=== PATIENT | female | born 1950 | race Caucasian/White ===

== ENCOUNTER → 2022-06-27 01:46 | Outpatient (CLI) | payer MEDICARE, SELFPAY ==
--- NOTE | 2022-06-27 17:10 | DI.MAMMO_ITS ---
Exam(s) MAMMO SCREENING EXAM: MAMMO SCREENING CLINICAL HISTORY: SCREENING MAMMO FOR BREAST CANCER Z12.31 TECHNIQUE: Bilateral full field digital CC and MLO mammographic images were obtained with 3D tomosyn thesis and utilizing computer aided detection (CAD). COMPARISON: Available for comparison. FINDINGS: Masses/Architectural Distortion: None seen. Microcalcifications: No suspicious pleomorphic-type are seen. Skin Thickening/Nipple Retraction: None. IMPRESSION: 1. No significant interval change with no specific features of malignancy noted. 2. Unless there is more urgent need, screening mammography is recommended, as per [place] [employer] guidelines. BI-RADS Category 1 - Negative Breast Density - Category C - Heterogeneously dense Breast density category C or D implies that the patient has dense breast tissue. Dense breast tissue is very common and is not abnormal but dense breast tissue can make it harder to find cancer on a ma mmogram. Also, dense breast tissue may increase their breast cancer risk. This information about the result of the mammogram report was provided to the patient to raise their awareness. Use this report when you speak with the patient about their risks for breast cancer, which includes their family hist ory. At that time, you may recommend for more screening tests (Ultrasound or MRI) as they might be us eful based on their risk. A negative radiographic report should not delay biopsy if a dominant or clinically suspicious mass is present. Up to ten percent of cancers are not identified on mammography. A negative report may reinforce clinical impression. Adenosis and dense breasts may obscure an underlying neoplasm. False positive reports average 6 to 10%. Patient will receive a letter notifying them of these results.
== END ==
PROVIDERS: Visit Provider Family Medicine
DX: Z12.31 Encounter for screening mammogram for malignant neoplasm of breast (principal); R92.8 Other abnormal and inconclusive findings on diagnostic imaging of breast
CPT/HCPCS: 77063; 77067

== ENCOUNTER 2022-08-24 13:52 | Outpatient (CLI) | payer MEDICARE, SELFPAY ==
--- NOTE | 2022-08-24 13:45 | RT.EKG_ITS ---
APPROVED REPORT Exam: Resting ECG Reason for Exam: sinus node dysfunction Patient Location: O HR:82 bpm ECG Measurements Heart Rate 82 AXIS LA 151 P [id number] QRSd 148 QRS 21 QT 398 T -35 QTc 465 Conclusion Atrial-paced rhythm Right bundle branch block...QRSd>120, terminal axis(90,270)
== END 2022-08-24 13:53 | disposition home or self-care (01) ==
LOC: DI.CARD 13:54
PROVIDERS: PCP Family Medicine; Visit Provider Internal Medicine Cardiovascular Disease
DX: Z95.0 Presence of cardiac pacemaker (principal); R94.31 Abnormal electrocardiogram [ECG] [EKG]; I45.19 Other right bundle-branch block
CPT/HCPCS: 93010

== ENCOUNTER → 2022-08-24 13:54 | Outpatient (BNVA) | payer MEDICARE, SELFPAY | PROVIDERS: PCP Family Medicine; Referring Provider Family Medicine; Visit Provider Internal Medicine Cardiovascular Disease | DX: I10 Essential (primary) hypertension (principal); E78.5 Hyperlipidemia, unspecified; Z95.0 Presence of cardiac pacemaker | CPT/HCPCS: 93005; 99202; 99203 ==

== ENCOUNTER 2022-10-22 03:50 | Outpatient (CLI) | payer MEDICARE, SELFPAY ==
[2022-10-22 10:47] LABS: HCT 38.9 % (36.0-46.0); HGB 13.7 g/dL (11.2-15.7); MCH 31.4 pg (27.0-33.0); MCHC 35.2 % (32.0-36.0); MCV 89 fL (80-95); Platelet Count 224 10^3/uL (130-400); RBC 4.36 10^6/uL (3.93-5.22); RDW 11.4 % (11.7-14.6); WBC 5.67 10^3/uL (4.4-10.8)
[2022-10-22 11:07] LABS: ALT 25 U/L (14-59); AST 19 U/L (15-37); Albumin 3.8 g/dL (3.4-5.0); Alkaline Phosphatase 78 U/L (46-116); Anion Gap 9.2 mmol/L (3-11); BUN 17 mg/dL (7-18); Bilirubin, Total 0.5 mg/dL (0.2-1.0); CO2 27.8 mmol/L (21.0-32.0); CREATININE 0.9 mg/dL (0.55-1.02); Calcium 9.5 mg/dL (8.5-10.1); Calculated LDL 101 mg/dL (<100); Chloride 104 mmol/L (98-107); Cholesterol 185 mg/dL (<200); Glucose 118 mg/dL (74-106); HDL Cholesterol 66 mg/dL (40-60); Potassium 3.8 mmol/L (3.5-5.1); Sodium 141 mmol/L (136-145); Total Protein 7.5 g/dL (6.4-8.2); Triglyceride 93 mg/dL (<150)
== END 2022-10-22 03:51 | disposition home or self-care (01) ==
PROVIDERS: PCP Family Medicine; Visit Provider Family Medicine
DX: I10 Essential (primary) hypertension (principal); R73.03 Prediabetes; K21.9 Gastro-esophageal reflux disease without esophagitis; E78.5 Hyperlipidemia, unspecified
CPT/HCPCS: 36415; 80053; 80061; 85027; 83036

== ENCOUNTER 2022-12-14 00:27 | Outpatient (CLI) | payer MEDICARE, SELFPAY ==
--- NOTE | 2022-12-14 | DI.US_ITS ---
Exam(s) US THYROID EXAM: US THYROID CLINICAL HISTORY: THYROID NODULE E04.1. TECHNIQUE: Ultrasound thyroid performed using standard protocol. COMPARISON: US US HEAD AND NECK from 03/26/2022 FINDINGS: ISTHMUS: 3 mm RIGHT LOBE: Size: 6.8 x 3.0 x 3.4 cm Echogenicity: Normal. Vascularity: Normal. Nodules: There is a 4.9 x 2.5 x 3.4 cm nodule. This is a solid nodule. This is a TI rads level 3 no dule. Due to its size, FNA is recommended. Please correlate with the patient's past procedural hist ory. LEFT LOBE: Size: 5.2 x 1.6 x 1.6 cm Echogenicity: Normal. Vascularity: Normal. Nodules: The left lobe nodule is grossly unchanged in size using similar measuring techniques. This is consistent with a TI rads level 3 nodule. Due to its size follow-up is recommended. There are no other left thyroid nodules visualized that would warrant follow-up or FNA. OTHER FINDINGS: None. IMPRESSION: Stable thyroid nodules. DATA REPOSITORY:
== END 2022-12-14 00:47 ==
LOC: DI 00:27
PROVIDERS: PCP Family Medicine; Visit Provider Family Medicine
DX: E04.1 Nontoxic single thyroid nodule (principal)
CPT/HCPCS: 76536

== ENCOUNTER 2022-12-19 08:17 | Outpatient (CLI) | payer MEDICARE, SELFPAY ==
--- NOTE | 2022-12-19 08:15 | RT.EKG_ITS ---
APPROVED REPORT Exam: Resting ECG Reason for Exam: check pacemaker Patient Location: O HR:78 bpm ECG Measurements Heart Rate 78 AXIS MO 154 P -29 QRSd 165 QRS -3 QT 426 T -36 QTc 486 Conclusion Pacemaker spikes or artifacts...timing non-diagnostic Sinus rhythm...normal P axis, V-rate 50- 99 Right bundle branch block...QRSd>120, terminal axis(90,270) Artifact in lead(s) I,III,aVR,aVL,aVF,V4,V5,V6
== END 2022-12-19 08:18 | disposition home or self-care (01) ==
LOC: DI.CARD 08:18
PROVIDERS: PCP Family Medicine; Visit Provider Physician Assistant
DX: Z95.0 Presence of cardiac pacemaker (principal)
CPT/HCPCS: 93010

== ENCOUNTER → 2022-12-19 08:24 | Outpatient (BNVA) | payer MEDICARE, SELFPAY | PROVIDERS: PCP Family Medicine; Referring Provider Family Medicine; Visit Provider Physician Assistant | DX: Z45.010 Encounter for checking and testing of cardiac pacemaker pulse generator [battery] (principal); I49.5 Sick sinus syndrome | CPT/HCPCS: 93005; 93280 ==

== ENCOUNTER → 2023-02-21 11:03 | Outpatient (BNVA) | payer MEDICARE, SELFPAY | PROVIDERS: PCP Family Medicine; Referring Provider Family Medicine; Visit Provider Physical Therapy Assistant | DX: Z12.11 Encounter for screening for malignant neoplasm of colon (principal); Z86.010 Personal history of colon polyps; Z80.0 Family history of malignant neoplasm of digestive organs ==

== ENCOUNTER 2023-03-08 08:20 | Day surgery (SDC) | payer MEDICARE, SELFPAY ==
--- NOTE | 2023-03-07 20:22 | W.COLOREPORT ---
Date of service: 03/08/23 Time of Service: 09:30 Colonoscopy Report Date of procedure: 03/08/23 Pre-op diagnosis general: Colon polyps/family hx of CRC cancer Post-op diagnosis procedure note: other (Diverticula and rectal polyp.) Surgeon: Salma Fox Anesthesia Type: General:No Airway Estimated blood loss (mL): 1 Pathology: other Complications: None Disposition: same day Prep: Miralax/Dulcolax Retraction Time: 9 Procedure Description: After informed consent was obtained the patient was taken to the procedure room and placed in a left decubitous position. Monitors were applied and a time out was done. The patients name, date of , procedure, allergies to medications and metal in their body was reviewed. The patient was then sedated. Once sedated and comfortable a rectal exam was done. External exam was normal. Internal exam revealed a normal sphincter tone and no palpable masses. The scope was then introduced and retrofelexed. No internal hemorrhoids were identified. The scope was then advanced to the cecum with some difficulty: we did have to place her supine in order to get across the hepatic flexure. The TI and appendiceal orifice were identified. The prep was BBPS 1 in right colon and 2 in ransverse adn left colon for a total of 5. The scope was then slowly retracted over 9 minutes back into the rectum. she has moderate diverticula confined to the sigmoid colon. There are no signs of active bleeding or infection. She has a flat 5 mm polyp in the rectum. This is removed with a cold forcep. All specimen is retrieved and no bleeding is noted. The mucosa is pink and healthy w/ a normal vascular pattern. The scope was removed and the patient was woken up and taken back to Same day surgery in stable condition. The patient tolerated the procedure well and there were no immediate complications. Follow up: The patient should follow up in 5 years unless they develop changes in bowel habits or other new gastrointestinal complaints.
--- NOTE | 2023-03-07 20:23 | PDOC.DSDIS_ITS ---
Date of service: 03/08/23 Time of Service: 09:47 Discharge Plan Disposition Patient Disposition: Home Condition: Good Discharge Details Reason For Visit: colon scope Attending Provider: Salma Fox Primary Care Provider: Griffin Huffman Home Meds and New Rx's Prescriptions: Continued lutein 6 mg capsule 6 mg PO DAILY Rx Instructions: give with meal/snack alendronate 70 mg tablet 70 mg PO QWEEK atorvastatin 20 mg tablet 20 mg PO DAILY metoprolol succinate 25 mg tablet extended release 24 hr 25 mg PO DAILY lisinopril-hydrochlorothiazide 20-25 mg tablet 1 tab PO DAILY amoxicillin 500 mg capsule 2,000 mg PO BID Rx Instructions: take 4 tabs prior to dental work multivitamin Tablet 1 tab PO DAILY vitamin B complex Tablet 1 tab PO DAILY Caltrate-D3 Plus Minerals 300 mg-800 unit -25 mg-0.5 mg tablet 1 tab PO DAILY Adult 50 Plus Probiotic 4 billion cell capsule 4,000 mmu cells PO DAILY Rx Instructions: administer with a meal docusate sodium 50 mg capsule 50 mg PO DAILY PRN doxepin 10 mg capsule 10 mg PO QHS PRN Discontinued bisacodyl [Dulcolax (bisacodyl)] 5 mg tablet,delayed release (DR/EC) 5 mg PO ONCE Qty: 4 0RF Rx Instructions: Take per colonoscopy instructions provided by ordering providers office polyethylene glycol 3350 17 gram/dose powder 17 g PO ONCE Qty: 238 0RF Rx Instructions: Take per colonoscopy instructions provided by ordering providers office Discharge Instructions Additional Instructions: DSU Colonoscopy Post- Op Instructions Instructions for Everyone who is given Anesthesia: For your safety, please do the following for the next twenty-four (24) hours: *Do Not operate a motor vehicle (car, truck, motorcycle, etc.) *Do Not drink alcoholic beverages or use any recreational drugs for the first 24 hours or while taking pain medications. The medications in your body may have a reaction that can be dangerous. *Do Not make any important decisions or sign any important papers. Findings: diverticula-make sure you are moving your bowels on a regular basis and not straining to go to the office small polyp polyp-my office will send you a letter in 2 to 3 weeks with the results of the biopsies and when we want you to repeat the colonoscopy, most likely 5 years time. Follow up: 1. No lifting over 20 pounds or strenuous activity for the first 24 hours after your procedure. After 24 hours there are no restrictions on your activity but you may feel fatigued for a few days. 2. After you arrive home you may have a light meal and return to your normal diet as you can tolerate it without feeling sick to your stomach. 3. You may have a bloated, gaseous feeling in your belly (abdomen) after a colonoscopy. Passing gas and belching will help. Walking or lying down on your left side with your knees flexed may relieve the discomfort. Call the office at [phone] (Office) or [phone] (Hospital) right away if you notice any of the following: a.Vomiting of blood or ?coffee ground stools?. b.Rectal bleeding 1Tbsp, blood clots or continuous bleeding. c.Severe belly (abdominal) pain. d.A hard distended belly (abdomen) and an inability to pass gas. 4. Please don?t expect to have a normal BM (bowel movement) for 2-3 days after your procedure. 5. If there are questions regarding the findings of your procedure, please contact your doctor 6. If you are unable to contact your doctor with a problem, contact the hospital at [phone]. 7. Continue all your regular medications unless directed otherwise. I understand the above instructions and have no questions. Signature of Patient or Adult Escort Name of Responsible Adult Escort Signature of Nurse Date/Time Activity:: see above Diet:: see above Discharge Orders Discharge Orders: Discharge Order (Routine); Ordered 03/08/23 Ordered By: Salma Fox DS: Diagnosis Discharge Diagnosis (1) Hypertension: Status: Chronic (2) Prediabetes: Status: Acute (3) Cardiac pacemaker in situ: Status: Acute (4) Thyroid nodule: Status: Acute (5) Family history of colon cancer: Status: Acute Asessment and Plan: The patient is seen and examined after their colonoscopy.? The patient has been able to pass gas.? They are not having abdominal pain.? They have been able to tolerate liquids and a snack.? They do not have any nausea or vomiting.? They are not having any chest pain or shortness of breath.??? They are not having any rectal bleeding. Their vital signs have been stable-see nursing notes. We discussed findings during their colonoscopy, and any biopsies that were done/polyps that were removed. The patient will be sent a letter with any biopsy results, and when to repeat the colonoscopy.-see discharge instructions. Patient was given explicit instructions to follow-up regarding colonoscopy-refer to discharge instructions.? We reviewed resumption of medications. Patient verbalized understanding and discharged in stable and satisfactory condition- See nursing notes. 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
[2023-03-08 08:25] VITALS: BP 123/85; PULSE 65; RESP 16; TEMP 36.6; O2SAT 97
--- NOTE | 2023-03-08 08:45 | ANES.PREOP_ITS ---
General Info Date of Service Date Performed: 03/08/23 Height: 5 ft 4 in Weight: 81.5 kg Body Mass Index (BMI): 30.8 Surgical Procedure: Operation Date: 03/08/23 09:05 Proposed Procedure Side Surgeon hector Fox, DO Meds Allergies and Home Medications Allergies Allergy/AdvReac Type Severity Reaction Status Date / Time No Known Allergies Allergy Verified 03/08/23 08:29 Home Medication Medication Instructions Recorded alendronate 70 mg tablet 70 mg PO QWEEK 07/02/22 amoxicillin 500 mg capsule 2,000 mg PO BID 07/02/22 atorvastatin 20 mg tablet 20 mg PO DAILY 07/02/22 calcium carb 300 mg-D3 20 mcg-mag 1 tab PO DAILY 07/02/22 ox 25 mg-certified flex endoscope reprocessor 0.5 [id number] tablet (Caltrate-D3 Plus Minerals) docusate sodium 50 mg capsule 50 mg PO DAILY PRN 07/02/22 lactobacillus combination no.9 4 4,000 mmu cells PO DAILY 07/02/22 billion cell capsule (Adult 50 Plus Probiotic) lisinopril 20 1 tab PO DAILY 07/02/22 mg-hydrochlorothiazide 25 mg tablet metoprolol succinate 25 mg 25 mg PO DAILY 07/02/22 tablet,extended release 24 hr multivitamin 1 tab PO DAILY 07/02/22 vitamin B complex 1 tab PO DAILY 07/02/22 doxepin 10 mg capsule 10 mg PO QHS PRN 12/19/22 lutein 6 mg capsule 6 mg PO DAILY 12/19/22 Current Visit Medications: Current Medications Generic Name Dose Route Start Last Admin Trade Name Freq PRN Reason Stop Dose Admin Hyoscyamine Sulfate 0.125 mg 03/08/23 01:03 Hyoscyamine 0.125 Mg Sl/Oral/Chew SL 04/07/23 01:02 DIRECTED PRN Ringer's Solution 1,000 mls @ 80 mls/hr 03/08/23 06:00 IV 03/08/23 23:59 [facility] IV Miscellaneous Supplies 1 each 03/08/23 06:00 Iv Access IV 03/08/23 23:59 DIRECTED ERNESTO Ondansetron HCl 4 mg 03/08/23 01:03 Ondansetron 4 Mg/2 Ml Vial IVP 04/07/23 01:02 Q4H PRN PRN Nausea / Vomiting Sodium Chloride 0 ml 03/08/23 06:00 Normal Saline Flush 10 Ml Syr IV 03/08/23 23:59 PRN PRN Sodium Chloride 0 ml 03/08/23 06:00 Normal Saline 10 Ml Vial IJ 03/08/23 23:59 DIRECTED PRN Sterile Water 0 ml 03/08/23 06:00 Water,Injection,Sterile 10 Ml Vial IJ 03/08/23 23:59 DIRECTED PRN PFSH Active Problems Active Problems: Problem Status Onset Code Screening for colon cancer Z12.11 Hypertension I10 Prediabetes R73.03 Cardiac pacemaker in situ Z95.0 Thyroid nodule E04.1 Insomnia G47.00 Family history of colon cancer Z80.0 Hyperlipidemia E78.5 Anxiety F41.9 GERD (gastroesophageal reflux disease) K21.9 Osteoarthritis M19.90 Glaucoma H40.9 Squamous cell carcinoma of mouth C06.9 Overactive bladder N32.81 Sinus node dysfunction I49.5 Medical History Medical History Bradycardia Sacral nerve stimulator present In situ for OAB Surgical History Surgical History H/O oral surgery S/P vaginal hysterectomy Status post arthroscopy of knee both knees Tobacco Smoking/Tobacco Use Status: Never Alcohol Alcohol Intake: current Alcohol intake frequency: a few times a month Substance Use Substance use: Never Substance use type: does not use Vital Signs and Lab Results Vital Signs Most Recent Vital Signs in EMR: Most Recent Vital Signs Temp Pulse Resp BP Pulse Ox 36.6 C 65 16 123/85 97 03/08/23 08:25 03/08/23 08:25 03/08/23 08:25 03/08/23 08:25 03/08/23 08:25 Lab Results Blood Type / Crossmatch: No Data to Display Complete Blood Count: No Data to Display Complete Metabolic Panel: No Data to Display Liver Function Panel: No Data to Display Coagulation Panel: No Data to Display Cardiac Panel: No Data to Display Arterial Blood Gas: No Data to Display Venous Blood Gas: No Data to Display Pancreas Panel: No Data to Display Thyroid Panel: No Data to Display Infectious Disease: No Data to Display Blood Cultures: No Data to Display Toxicology Panel: No Data to Display Anesthesia Assessment and Plan Anesthesia History Personal History: No History of Anesthesia Complications Family History: No Family History of Anesthesia Complications Exercise Tolerance Exercise Tolerance: Metabolic Equivalents>4 Pertinent Negatives Pertinent Negatives: No Symptoms of GERD and No Major Pulmonary Symptoms or Complaints Cardiac & Pulmonary Exam Cardiac Exam: Normal S1/S2 Heart Sounds Pulmonary Exam: Clear Bilateral Breath Sounds Implantable Cardiac Device Does patient have a Pacemaker or an ICD?: Yes Device Floor Worker:: Medtronic dual lead Mustang Reason for Placement:: Bradycardia Date of Last Device Inte rrogation:: 12/2022 Airway Exam Known Difficult Airway: No Mallampati Class: 1 Mouth Opening: Normal (> 3cm) Thyromental Distance: Greater than 3 cm Neck Range of Motion: Full ROM Neck Circumference: Normal Teeth Condition: Normal Dentition ASA Classification ASA Score: ASA 3 Emergency Case?: No NPO Status NPO Status: NPO Clears >2 hours, Solids >8 hours Anesthesia Plan Resuscitation Status: Full Code Anesthesia Technique: General Anesthesia Airway Planned: Natural Airway Monitors Used: Standard Monitors
[2023-03-08 08:47] VITALS: BMI 30.8
[2023-03-08] MEDS: Lactated Ringers 1,000 ML 80 ML IV (08:50)
--- NOTE | 2023-03-08 09:26 | BOWEL_PTH ---
PATIENT: Sissy Bran LOC: [facility] U#:[id number] AGE/SX: 72/F ROOM: RE03/08/[address]: Salma Fox : 1950 BED: DIS: 03/08/2023 SPEC #: [id number] RECD: 03/08/23 12:40 STATUS: TOBI REQ #: [id number] HOSSEIN: 03/08/23 09:[address]: Salma Fox DEPT: Surgical Specimen RECD BY: Ana Manrique ENTERED: 03/08/23 12:41 SP TYPE: Bowel OTHR DR: Griffin Huffman Tissues: 1 - BIOPSY BOWEL Procedures: GROSS AND MICRO LEVEL 4 Comments: [id number]
[2023-03-08 09:32] VITALS: BP 107/61; PULSE 63; RESP 20; TEMP 36.2; O2SAT 94
[2023-03-08 10:03] VITALS: BP 120/68; PULSE 62; RESP 17; TEMP 36.1; O2SAT 99
--- NOTE | 2023-03-08 11:25 | W.ANESPOSTOP ---
Postoperative Evaluation Date, Time and Location Date Performed: 03/08/23 Time Performed: 10:08 Patient Location: Day Surgery Unit Vital Signs Most Recent Imported Vital Signs: Most Recent Vital Signs Temp Pulse Resp BP Pulse Ox 36.1 C L 62 17 120/68 99 03/08/23 10:03 03/08/23 10:03 03/08/23 10:03 03/08/23 10:03 03/08/23 10:03 Pain Score Most Recent Pain Score: Most Recent Pain Score Pain Level 0 03/08/23 10:03 Assessment Mental Status: Awake (Alert & Oriented to Patient Baseline) Airway and Respiratory Function: Patent airway with normal (patient baseline) respiratory exam Cardiovascular Function: Hemodynamically Stable Hydration Status: Adequately Hydrated Nausea & Vomiting: No Nausea or Vomiting Pain: Pt. Denies Any Pain Peripheral Nerve Block: Patient did not receive a nerve block
== END 2023-03-08 10:20 | disposition home or self-care (01) ==
LOC: SUR 08:20
PROVIDERS: PCP Family Medicine; Visit Provider Surgery
PROC: 0DJD8ZZ Inspection of Lower Intestinal Tract, Via Natural or Artificial Opening Endoscopic (ICD-10-PCS; CPT 45378; principal; 2023-03-08 09:00)
DX: Z12.11 Encounter for screening for malignant neoplasm of colon (principal); K62.1 Rectal polyp; K57.30 Diverticulosis of large intestine without perforation or abscess without bleeding; Z80.0 Family history of malignant neoplasm of digestive organs; Z86.010 Personal history of colon polyps
CPT/HCPCS: 45380; 88305

== ENCOUNTER → 2023-06-19 09:04 | Outpatient (BNVA) | payer MEDICARE, SELFPAY | PROVIDERS: PCP Family Medicine; Referring Provider Family Medicine; Visit Provider Physician Assistant | DX: Z45.018 Encounter for adjustment and management of other part of cardiac pacemaker (principal); I49.5 Sick sinus syndrome | CPT/HCPCS: 93280 ==

== ENCOUNTER → 2023-08-23 10:43 | Outpatient (BNVA) | payer MEDICARE, SELFPAY | PROVIDERS: PCP Family Medicine; Referring Provider Family Medicine; Visit Provider Internal Medicine Interventional Cardiology | DX: Z95.0 Presence of cardiac pacemaker (principal); I10 Essential (primary) hypertension; E78.5 Hyperlipidemia, unspecified | CPT/HCPCS: 99213 ==

== ENCOUNTER 2023-09-02 14:34 | Outpatient (REF) | payer MEDICARE, SELFPAY ==
[2023-09-02 15:17] LABS: HCT 37.4 % (36.0-46.0); HGB 13.2 g/dL (11.2-15.7); MCH 31.7 pg (27.0-33.0); MCHC 35.3 % (32.0-36.0); MCV 90 fL (80-95); Platelet Count 202 10^3/uL (130-400); RBC 4.16 10^6/uL (3.93-5.22); RDW 11.9 % (11.7-14.6); RDW-SD 38.8 fL; WBC 5.22 10^3/uL (4.4-10.8)
[2023-09-02 15:37] LABS: ALT 45 U/L (14-59); AST 29 U/L (15-37); Albumin 3.9 g/dL (3.4-5.0); Alkaline Phosphatase 68 U/L (46-116); Anion Gap 6.7 mmol/L (3-11); BUN 17 mg/dL (7-18); Bilirubin, Total 0.5 mg/dL (0.2-1.0); CO2 29.3 mmol/L (21.0-32.0); CREATININE 0.7 mg/dL (0.55-1.02); Calcium 9.7 mg/dL (8.5-10.1); Calculated LDL 109 mg/dL (<100); Chloride 104 mmol/L (98-107); Cholesterol 203 mg/dL (<200); Glucose 126 mg/dL (74-106); HDL Cholesterol 70 mg/dL (40-60); Potassium 3.9 mmol/L (3.5-5.1); Sodium 140 mmol/L (136-145); TSH (W/Ref FT4) 0.82 uIU/mL (0.36-3.74); Total Protein 7.2 g/dL (6.4-8.2); Triglyceride 123 mg/dL (<150)
== END 2023-09-02 14:35 | disposition home or self-care (01) ==
LOC: NCHCN 14:34
PROVIDERS: PCP Family Medicine; Visit Provider Family Medicine
DX: I10 Essential (primary) hypertension (principal); E78.5 Hyperlipidemia, unspecified; E04.1 Nontoxic single thyroid nodule
CPT/HCPCS: 80053; 80061; 85027; 84443

== ENCOUNTER → 2023-12-18 08:57 | Outpatient (BNVA) | payer MEDICARE, SELFPAY | PROVIDERS: PCP Family Medicine; Referring Provider Family Medicine; Visit Provider Student in an Organized Health Care Education/Training Program | DX: I49.5 Sick sinus syndrome (principal); Z45.010 Encounter for checking and testing of cardiac pacemaker pulse generator [battery] | CPT/HCPCS: 93280 ==

== ENCOUNTER 2024-05-04 15:04 | Outpatient (REF) | payer MEDICARE, SELFPAY ==
[2024-05-04 15:24] LABS: Anion Gap 9.9 mmol/L (3-11); BUN 17 mg/dL (7-18); CO2 27.1 mmol/L (21.0-32.0); CREATININE 0.8 mg/dL (0.55-1.02); Calcium 9.7 mg/dL (8.5-10.1); Chloride 104 mmol/L (98-107); Estimated GFR 76.79 (mL/min/1.73m2); Glucose 114 mg/dL (74-106); Potassium 3.9 mmol/L (3.5-5.1); Sodium 141 mmol/L (136-145); Vitamin D 25 Total 34.3 ng/mL (30-100)
== END 2024-05-04 15:05 | disposition home or self-care (01) ==
LOC: NCHCN 15:04
PROVIDERS: PCP Family Medicine; Visit Provider Family Medicine
DX: M81.0 Age-related osteoporosis without current pathological fracture (principal); I10 Essential (primary) hypertension; E04.1 Nontoxic single thyroid nodule
CPT/HCPCS: 80048; 82306

== ENCOUNTER 2024-05-06 15:05 | Outpatient (REF) | payer MEDICARE, SELFPAY ==
[2024-05-09 15:15] LABS: Metanephrines, U 154 mcg/24 h; Normetanephrine, U 684 mcg/24 h; Total Metanephrines, U 838 mcg/24 h; Urine Volume 1900 mL
[2024-05-11 09:35] LABS: Urine Volume 1900 mL
== END 2024-05-06 15:06 | disposition home or self-care (01) ==
LOC: NCHCN 15:05
PROVIDERS: PCP Family Medicine; Visit Provider Family Medicine
DX: I10 Essential (primary) hypertension (principal)
CPT/HCPCS: 81050; 82384; 83835

== ENCOUNTER 2024-06-04 02:19 | Outpatient (CLI) | payer MEDICARE, SELFPAY ==
--- NOTE | 2024-06-04 | DI.DEXA_ITS ---
Exam(s) XR DEXA BONE DENSITY W/WO MAHSA EXAM: XR DEXA BONE DENSITY W/WO MAHSA CLINICAL HISTORY: Age-related osteoporosis wo current pathological fx, M81.0 TECHNIQUE: Bettymovil C densitometer analysis of left hip, lumbar spine and left forearm. Lat eral survey image of the thoracic and lumbar spine. COMPARISON: No exams were available for comparison FINDINGS: Lateral view of the thoracic and lumbar spine shows no evidence of compression fractures. Bone mineral density measurements of the lumbar spine correspond to a total T-score of 1.1, in the n ormal range Bone mineral density measurements of the left hip correspond to a total T-score of -1.9. The femora l neck T-score is -2.2, in the osteopenic range.. Theleft forearm bone mineral density measurements correspond to a T-score of the distal 3rd of -2.2, in the osteopenic range.. IMPRESSION: Normal bone mineral density of the spine. Osteopenia of the hip and forearm.
== END 2024-06-04 02:39 ==
LOC: DI 02:19
PROVIDERS: PCP Family Medicine; Visit Provider Family Medicine
DX: M85.89 Other specified disorders of bone density and structure, multiple sites (principal); Z13.820 Encounter for screening for osteoporosis
CPT/HCPCS: 77080

== ENCOUNTER → 2024-08-21 10:52 | Outpatient (BNVA) | payer MEDICARE, SELFPAY | PROVIDERS: PCP Family Medicine; Referring Provider Family Medicine; Visit Provider Internal Medicine Cardiovascular Disease | DX: R06.02 Shortness of breath (principal); Z95.0 Presence of cardiac pacemaker | CPT/HCPCS: 99214 ==

== ENCOUNTER 2024-12-23 07:57 | Outpatient (CLI) | payer MEDICARE, SELFPAY ==
--- NOTE | 2024-12-23 07:45 | RT.EKG_ITS ---
APPROVED REPORT Exam: Resting ECG Reason for Exam: sick sinus syndrome Patient Location: O HR:73 bpm ECG Measurements Heart Rate 73 AXIS SD 162 P -60 QRSd 146 QRS 0 QT 429 T -32 QTc 473 Conclusion Sinus or ectopic atrial rhythm...P axis (-45,135) Right bundle branch block...QRSd>120, terminal axis(90,270)
== END 2024-12-23 07:58 | disposition home or self-care (01) ==
LOC: DI.CARD 07:58
PROVIDERS: PCP Family Medicine; Visit Provider Student in an Organized Health Care Education/Training Program
DX: I49.5 Sick sinus syndrome (principal); R00.1 Bradycardia, unspecified; I45.10 Unspecified right bundle-branch block
CPT/HCPCS: 93010

== ENCOUNTER → 2024-12-23 09:20 | Outpatient (BNVA) | payer MEDICARE, SELFPAY | PROVIDERS: PCP Family Medicine; Visit Provider Registered Nurse | DX: I49.5 Sick sinus syndrome; Z45.018 Encounter for adjustment and management of other part of cardiac pacemaker | CPT/HCPCS: 93280; 93005 ==

== ENCOUNTER 2025-02-16 03:13 | Outpatient (CLI) | payer MEDICARE, SELFPAY ==
--- NOTE | 2025-02-16 07:45 | DI.US_ITS ---
APPROVED REPORT EXAM: Comprehensive 2D, Doppler, and color-flow Echocardiogram Patient Location: Out-Patient Weight Calculator: Adeline Holman RDCS (AE) Indications: Systolic murmur, SOB Other Information Study Quality: Adequate Conclusion Normal left ventricular wall thickness and chamber size. Ejection fraction is 60%. Wall motion is normal Normal right ventricular size and function Both atria are normal in size The aortic valve is trileaflet and minimally sclerotic with trace regurgitation Estimated right ventricular systolic pressure is 30 mmHg Ascending aorta measures 4.19 cm Device lead noted in the right heart Wall motion Left Ventricle The left ventricle is normal size. The left ventricular systolic function is normal. The left ventricular ejection fraction is within the normal range. There is normal left ventricular wall thickness. There is normal LV segmental wall motion. There is no ventricular septal defect visualized. LVEF is 60%. Right Ventricle Right ventricle is grossly normal in size. Right ventricular systolic function is grossly normal. Pacemaker lead is present in the right ventricle. Atria The left atrium size is normal. The right atrium size is normal. The interatrial septum is intact with no evidence for an atrial septal defect. Aortic Valve The Aortic valve is minimally sclerotic. Aortic valve is trileaflet. No hemodynamically significant valvular aortic stenosis. Trace aortic regurgitation. Mitral Valve The mitral valve is normal in structure. No evidence of mitral valve stenosis. Trace mitral regurgitation. Tricuspid Valve The tricuspid valve is normal in structure. There is no tricuspid valve stenosis. Trace tricuspid regurgitation. The RVSP is 30.0_ mmHg. Pulmonic Valve The pulmonary valve is normal in structure. There is no pulmonic valvular stenosis. Trace pulmonic regurgitation. Great Vessels The aortic root is normal in size. The ascending aorta is moderately dilated. Aortic arch is not well visualized. IVC is normal in size and collapses >50% with inspiration. Pericardium There is no pericardial effusion. 2D Dimensions IVSD d PLAX 0.90 cm F: 0.6-1.0 Ao Root d 3.01 cm F: 2.7 - 3.3 LVPW d PLAX 0.90 cm F: 0.6 - 1.0 Ao Asc Diam d 4.06 cm F: 2.3 - 3.1 LVID d PLAX 4.60 cm F: 3.8 - 5.2 LVDs 3.10 cm F: 2.2 - 3.5 LV EF Teichholz 61.5 % FS 32.94 % LV EDV (Teich) 97.4 mL LV ESV (Teich) 37.5 mL M-Mode TAPSE 3.23 cm (M/F) >1.7 Auto EF LV EDV A4C 98.4 mL LV EDV A2C 77.8 mL LV EDV BP 88.4 mL LV ESV A4C 42.2 mL LV ESV A2C 32.8 mL LV ESV BP 37.3 mL LVEF(%) A4C 57.2 % LVEF(%) A2C 57.9 % LVEF(%) BP 57.7 % LV SV A4C 56.2 ml LV SV A2C 45.0 ml LV SV BP 51.0 ml LV CO A4C 3.4 L/min LV CO A2C 2.7 L/min LV CO BP 3.0 L/min HR A4C 60.00 BPM HR A2C 60.00 BPM LV EDV Index (BP) LA Volume LA Length A4C 4.9 cm LA Length A2C 5.3 cm LA Area A4C s 14.74 cm2 LA Area A2C s 15.66 cm2 LA Vol A4C A-L 37.35 mL LA Vol A2C A-L 39.47 mL LA Vol Biplane A-L 39.7 mL LA Vol/BSA A4C A-L LA Vol/BSA A2C A-L LA Vol/BSA BP A-L 21.3 mL/m2 LA Vol A4C MOD 35.1 mL LA Vol A2C MOD 37.6 mL LA Vol BP MOD 37.5 mL LV Diastology MV E' medial 0.086 (>0.07 m/s) MV E Vmax 0.70 (0.4-1.3 m/s) MV E/E' MED 8.18 (<14) MV A Vmax 0.95 (0.4-1.3 m/s) E/A Ratio 0.7 Aortic Valve AoV Vmax 2.02 m/s LVOT Vmax 1.28 m/s AoV Peak Grad 16.4 mmHg LVOT Peak Grad 6.6 mmHg AoV Area (Vmax) 2.06 cm2 LVOT VTI 0.284 m AoV VTI 0.423 m LVOT Mean Grad 3.8 mmHg AoV Mean Rober. 1.28 m/s LVOT SV 92.40 mL AoV Mean Grad 7.8 mmHg LVOT Diam s 2.00 cm AoV Area (VTI) 2.18 cm2 AV Regurg Peak Gr. 16.37 mmHg Velocity Ratio 0.63 Mitral Valve MV DT 283 (160-240 msec) MV Vmax TIPS 0.89 m/s MV Mean Grad 1.2 (<2mmHg) MV VTI 0.348 m Pulmonary Valve PV Vmax 1.17 (0.5-1.5 m/s) RVOT Vmax 0.58 m/s PV Peak Grad 5.5 mmHg RVOT Peak Gr. 1.4 mmHg PV Mean Rober 0.74 m/s RVOT VTI 0.113 m PV Mean Grad 2.7 mmHg RVOT Mean Gr. 0.9 mmHg Tricuspid Valve RA Pressure 3.00 mmHg TR Vmax 2.60 m/s TV S' 0.12 m/s TR Peak Grad 26.9 mmHg RVSP (TR) 30.0 mmHg
== END 2025-02-16 03:33 ==
PROVIDERS: PCP Family Medicine; Visit Provider Internal Medicine Cardiovascular Disease
DX: R06.02 Shortness of breath (principal); I35.0 Nonrheumatic aortic (valve) stenosis
CPT/HCPCS: 93306

== ENCOUNTER → 2025-02-26 10:37 | Outpatient (BNVA) | payer MEDICARE, SELFPAY | PROVIDERS: PCP Family Medicine; Referring Provider Family Medicine; Visit Provider Internal Medicine Cardiovascular Disease | DX: Z95.0 Presence of cardiac pacemaker (principal); I10 Essential (primary) hypertension | CPT/HCPCS: 99213 ==

== ENCOUNTER 2025-04-16 08:03 | Day surgery (SDC) | payer MEDICARE, SELFPAY ==
--- NOTE | 2025-04-16 07:40 | W.ANESPRE ---
General Info Date of Service Date Performed: 04/16/25 Height: 5 ft 3 in Weight: 88.451 kg Body Mass Index (BMI): 34.5 Surgical Procedure: Operation Date: 04/16/25 10:40 Proposed Procedure Side Surgeon p Cataract Extraction with IOL Implant Left Koffi Charlton MD Meds Allergies and Home Medications Allergies Allergy/AdvReac Type Severity Reaction Status Date / Time No Known Allergies Allergy Verified 04/16/25 08:30 Home Medication ?Medication ?Instructions ?Recorded alendronate 70 mg tablet 70 mg PO QWEEK 07/02/22 atorvastatin 20 mg tablet 20 mg PO DAILY 07/02/22 calcium 300 mg-D3 20 mcg-magnesium 1 tab PO DAILY 07/02/22 25 mg-coppr 0.5 [id number] tablet (Caltrate-D3 Plus Minerals) lisinopril 20 1 tab PO DAILY 07/02/22 mg-hydrochlorothiazide 25 mg tablet metoprolol succinate 25 mg 25 mg PO DAILY 07/02/22 tablet,extended release 24 hr multivitamin 1 tab PO DAILY 07/02/22 vitamin B complex 1 tab PO DAILY 07/02/22 lutein 6 mg capsule 6 mg PO DAILY 12/19/22 [id number]-ytgak0 250 mg-dha 90 1 cap PO DAILY 06/19/23 mg-epa 160 zf-wrgr-amsr-zeax capsule (Ocuvite Adult 50 Plus) amoxicillin 500 mg capsule 2,000 mg PO BID PRN 08/23/23 atenolol 25 mg tablet mg 04/16/25 Current Visit Medications: Current Medications Generic Name Dose Route Start Last Admin Trade Name Freq PRN Reason Stop Dose Admin Acetaminophen 1,000 mg 04/16/25 06:00 Acetaminophen 500 Mg Tab PO 05/16/25 05:59 Q4H PRN PRN Balanced Salt Solution 500 ml 04/16/25 06:00 Balanced Salt Soln.-Plus 500 Ml Bag OP 05/16/25 05:59 DIRECTED ERNESTO Miscellaneous Medication 0 ml 04/16/25 06:00 Prednisolone 1%, Moxifloxacin 0.5%, Bromfenac 0.09% 5.6ml Btl OS 05/16/25 05:59 DIRECTED ERNESTO Miscellaneous Medication 0 ml 04/16/25 06:00 Tropicam./Phenyleph. (1/2.5%) 5 Ml Btl OS 05/16/25 05:59 DIRECTED [facility] Tetracaine HCl 0 ml 04/16/25 06:00 Tetracaine 0.5% 4 Ml Btl OS 05/16/25 05:59 DIRECTED [facility] Active Problems Active Problems: Problem Status Onset Code Nuclear age-related cataract, left eye Acute H25.12 Hyperplastic colon polyp Acute ~03/08/23 K63.5 Diverticula of colon Acute K57.30 Adenomatous colon polyp Acute D12.6 Screening for colon cancer Acute Z12.11 Hypertension Chronic I10 Prediabetes Acute R73.03 Cardiac pacemaker in situ Acute Z95.0 Thyroid nodule Acute E04.1 Insomnia Acute G47.00 Family history of colon cancer Acute Z80.0 Hyperlipidemia Acute E78.5 Anxiety Chronic F41.9 GERD (gastroesophageal reflux disease) Chronic K21.9 Osteoarthritis Chronic M19.90 Glaucoma Chronic H40.9 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 Overactive bladder Acute N32.81 Sinus node dysfunction Acute I49.5 Medical History Medical History Sacral nerve stimulator present In situ for OAB Bradycardia Surgical History Surgical History History of colonoscopy (~03/2023) S/P vaginal hysterectomy H/O oral surgery Status post arthroscopy of knee both knees Tobacco Smoking/Tobacco Use Status: Never Passive smoking exposure: No Alcohol Alcohol Intake: current Alcohol intake frequency: a few times a month Substance Use Substance use: Never Substance use type: does not use Vital Signs and Lab Results Vital Signs Most Recent Vital Signs in EMR: Temp Pulse Resp BP Pulse Ox 36 C L 67 16 179/93 H 97 04/16/25 08:18 04/16/25 08:18 04/16/25 08:18 04/16/25 08:18 04/16/25 08:18 Imaging and Studies Imaging and Studies Study information below may be from another EMR and interpreted by another provider. Please see original notes in EMR for more complete details. EKG Summary: EKG PATIENT NAME: Sissy Bran UNIT #: [id number] ORDERING PROVIDER: Pierre Nolasco PRIMARY CARE PROVIDER: MIREYA NARAYAN MD DATE/TIME OF SERVICE: 12/23/24924 : 1950 PERFORMING LOCATION: .CARD APPROVED REPORT Exam: Resting ECG Reason for Exam: sick sinus syndrome Patient Location: HR:73 bpm ECG Measurements Heart Rate 73 AXIS [place] 162 P -60 QRSd 146 QRS 0 QT 429 T-32 QTc 473 Conclusion Sinus or ectopic atrial rhythm...P axis (-45,135) Right bundle branch block...QRSd>120, terminal axis(90,270) <Electronically signed by JARROD GILLIS MD in OV> E-Sign Date: 12/24/24 E-Sign Time: 832 Echocardiogram Summary: Patient Name: Sissy Bran Unit #: [id number] Loc: Ordering Provider: Jarrod Gillis M.D. Status: [facility] Primary Care Provider: Mireya Narayan M.D. Date of Exam: 02/16/25 Sex: F Admission Date: 02/16/25 : 1950 Age: 74 APPROVED REPORT EXAM: Comprehensive 2D, Doppler, and color-flow Echocardiogram Patient Location: Out-Patient Senior Ui Web Developer: Adeline Holman RDCS (AE) Indications: Systolic murmur, SOB Other Information Study Quality: Adequate Conclusion Normal left ventricular wall thickness and chamber size. Ejection fraction is 60%. Wall motion is normal Normal right ventricular size and function Both atria are normal in size The aortic valve is trileaflet and minimally sclerotic with trace regurgitation Estimated right ventricular systolic pressure is 30 mmHg Ascending aorta measures 4.19 cm Device lead noted in the right heart Wall motion Left Ventricle The left ventricle is normal size. The left ventricular systolic function is normal. The left ventricular ejection fraction is within the normal range. There is normal left ventricular wall thickness. There is normal LV segmental wall motion. There is no ventricular septal defect visualized. LVEF is 60%. Right Ventricle Right ventricle is grossly normal in size. Right ventricular systolic function is grossly normal. Pacemaker lead is present in the right ventricle. Atria The left atrium size is normal. The right atrium size is normal. The interatrial septum is intact with no evidence for an atrial septal defect. Aortic Valve The Aortic valve is minimally sclerotic. Aortic valve is trileaflet. No hemodynamically significant valvular aortic stenosis. Trace aortic regurgitation. Mitral Valve The mitral valve is normal in structure. No evidence of mitral valve stenosis. Trace mitral regurgitation. Tricuspid Valve The tricuspid valve is normal in structure. There is no tricuspid valve stenosis. Trace tricuspid regurgitation. The RVSP is 30.0_ mmHg. Pulmonic Valve The pulmonary valve is normal in structure. There is no pulmonic valvular stenosis. Trace pulmonic regurgitation. Great Vessels The aortic root is normal in size. The ascending aorta is moderately dilated. Aortic arch is not well visualized. IVC is normal in size and collapses >50% with inspiration. Pericardium There is no pericardial effusion. 2D Dimensions IVSD d PLAX 0.90 cm F: 0.6-1.0Ao Root d 3.01 cm F: 2.7 - 3.3 LVPW d PLAX 0.90 cm F: 0.6 - 1.0Ao Asc Diam d 4.06 cm F: 2.3 - 3.1 LVID d PLAX 4.60 cm F: 3.8 - 5.2 LVDs 3.10 cm F: 2.2 - 3.5 LV EF Teichholz 61.5 % FS32.94 % LV EDV (Teich)97.4 mL LV ESV (Teich)37.5 mL M-Mode TAPSE 3.23 cm (M/F) >1.7 Auto EF LV EDV A4C98.4 mLLV EDV A2C77.8 mLLV EDV BP88.4 mL LV ESV A4C42.2 mLLV ESV A2C32.8 mLLV ESV BP37.3 mL LVEF(%) A4C57.2 %LVEF(%) A2C57.9 %LVEF(%) BP57.7 % LV SV A4C56.2 mlLV SV A2C45.0 mlLV SV BP51.0 ml LV CO A4C3.4 L/minLV CO A2C2.7 L/minLV CO BP3.0 L/min HR A4C60.00 BPMHR A2C60.00 BPMLV EDV Index (BP) LA Volume LA Length A4C4.9 cmLA Length A2C5.3 cm LA Area A4C s 14.74 cm2LA Area A2C s 15.66 cm2 LA Vol A4C A-L37.35 mLLA Vol A2C A-L39.47 mLLA Vol Biplane A-L39.7 mL LA Vol/BSA A4C A-LLA Vol/BSA A2C A-LLA Vol/BSA BP A-L 21.3 mL/m2 LA Vol A4C MOD35.1 mLLA Vol A2C MOD37.6 mLLA Vol BP MOD37.5 mL LV Diastology MV E' medial0.086 (>0.07 m/s)MV E Vmax 0.70 (0.4-1.3 m/s) MV E/E' MED8.18 (<14)MV A Vmax 0.95 (0.4-1.3 m/s) E/A Ratio 0.7 Aortic Valve AoV Vmax2.02 m/sLVOT Vmax 1.28 m/s AoV Peak Grad16.4 mmHgLVOT Peak Grad 6.6 mmHg AoV Area (Vmax)2.06 ts2XVMU VTI0.284 m AoV VTI0.423 mLVOT Mean Grad 3.8 mmHg AoV Mean Rober.1.28 m/sLVOT SV 92.40 mL AoV Mean Grad7.8 mmHgLVOT Diam s 2.00 cm AoV Area (VTI)2.18 cm2AV Regurg Peak Gr.16.37 mmHg Velocity Ratio 0.63 Mitral Valve MV DT 283 (160-240 msec) MV Vmax TIPS 0.89 m/s MV Mean Grad 1.2 (<2mmHg) MV VTI 0.348 m Pulmonary Valve PV Vmax 1.17 (0.5-1.5 m/s)RVOT Vmax 0.58 m/s PV Peak Grad 5.5 mmHgRVOT Peak Gr.1.4 mmHg PV Mean Vel0.74 m/sRVOT VTI0.113 m PV Mean Grad 2.7 mmHgRVOT Mean Gr.0.9 mmHg Tricuspid Valve RA Pressure 3.00 mmHgTR Vmax 2.60 m/s TV S'0.12 m/sTR Peak Grad 26.9 mmHg RVSP (TR) 30.0 mmHg Ordered By: Jarrod Gillis M.D. CC: Dictated By: Jarrod Gillis M.D. 02/16/25 1541 <Electronically signed by Jarrod Gillis M.D. in OV> 02/16/25 1546 Transcribed By: Jarrod Gillis MD 02/16/25 1544 This is privileged, confidential information intended only for the provider named. Any use or distribution by any person other than this provider is strictly prohibited. If you receive this report in error, please notify us immediately at [phone] and return the original report to us at the address above. Thank-you. Anesthesia Assessment and Plan Anesthesia History Personal History: No History of Anesthesia Complications Family History: No Family History of Anesthesia Complications Exercise Tolerance Exercise Tolerance: Metabolic Equivalents>4 Pertinent Negatives Pertinent Negatives: No Symptoms of GERD and No Major Pulmonary Symptoms or Complaints Cardiac & Pulmonary Exam Cardiac Exam: Normal S1/S2 Heart Sounds Pulmonary Exam: Clear Bilateral Breath Sounds Implantable Cardiac Device Does patient have a Pacemaker or an ICD?: Yes Device Straight Cutter:: [employer] Reason for Placement:: Sinus Node Dysfunction Date of Last Device Interrogation:: 12/23/24 Airway Exam Known Difficult Airway: No Mallampati Class: 3 Mouth Opening: Normal (> 3cm) Thyromental Distance: Greater than 3 cm Neck Range of Motion: Full ROM Neck Circumference: Normal Teeth Condition: Normal Dentition ASA Classification ASA Score: ASA 3 Emergency Case?: No NPO Status NPO Status: NPO Clears >2 hours, Solids >8 hours Anesthesia Plan Resuscitation Status: Full Code Anesthesia Technique: MAC Anesthesia Airway Planned: Natural Airway Monitors Used: Standard Monitors Preoperative Comments:: 75 yo for cataract removal. No MKO, understands that she can request sedation via IV. Sig PMHx: HTN (lisinopril, HCTZ, atenolol), pacer, GERD, PreDM, overactive bladder (nerve stim). Never smoker, occ EtOH. Previous Anes: - colo, prop, natural airway, no issues.
[2025-04-16 08:18] VITALS: BP 179/93; PULSE 67; RESP 16; TEMP 36; O2SAT 97
[2025-04-16] MEDS: Tropicam./Phenyleph. (1/2.5%) 5 ML BTL OS ×3 (08:33→08:43)
[2025-04-16 08:39] VITALS: BMI 34.5
[2025-04-16] MEDS: Duovisc Viscoelastic System EACH 1 EACH (09:49)
[2025-04-16] MEDS: Lidocaine 1% Pres-Free 5 ML VIAL (09:49)
[2025-04-16] MEDS: Phenylephrine/Lidocaine (15/10) MG/ML 1 ML VIAL (09:50)
[2025-04-16] MEDS: Moxifloxacin-PF 1 MG/ML VIAL (09:50)
[2025-04-16] MEDS: Prednisolone 1%, Moxifloxacin 0.5%, Bromfenac 0.09% 5.6ML BTL OS (09:51)
[2025-04-16] MEDS: Povidone-Iodine Ophth 30 ML BTL (09:51)
[2025-04-16] MEDS: Balanced Salt Soln.-PLUS 500 ML BAG OP (09:51)
[2025-04-16] MEDS: Tetracaine 0.5% 4 ML BTL OS (09:52)
[2025-04-16 10:11] VITALS: BP 142/76; PULSE 60; RESP 16; TEMP 36.3; O2SAT 100
--- NOTE | 2025-04-16 10:12 | W.PM.DSUDISC ---
Date of service: 04/16/25 Discharge Plan Disposition Patient Disposition: Home Discharge Details Attending Provider: Koffi Charlton Primary Care Provider: Griffin Huffman Home Meds and New Rx's Prescriptions: No Action lutein 6 mg capsule 6 mg PO DAILY Rx Instructions: give with meal/snack Ocuvite Adult 50 Plus 250 mg (90 mg-160 mg) capsule 1 cap PO DAILY alendronate 70 mg tablet 70 mg PO QWEEK atorvastatin 20 mg tablet 20 mg PO DAILY metoprolol succinate 25 mg tablet extended release 24 hr 25 mg PO DAILY lisinopril-hydrochlorothiazide 20-25 mg tablet 1 tab PO DAILY multivitamin Tablet 1 tab PO DAILY vitamin B complex Tablet 1 tab PO DAILY Caltrate-D3 Plus Minerals 300 mg-800 unit -25 mg-0.5 mg tablet 1 tab PO DAILY amoxicillin 500 mg capsule 2,000 mg PO BID PRN Rx Instructions: take 4 tabs prior to dental work atenolol 25 mg tablet Discharge Instructions Stand Alone Forms: DSU Post-Op Cataract, Jean Velasquez (DSU) Discharge Orders Discharge Orders: Discharge Order (Routine); Ordered 04/16/25 Ordered By: Koffi Charlton DS: Diagnosis Discharge Diagnosis (1) Nuclear age-related cataract, left eye: Status: Resolved (2) 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
--- NOTE | 2025-04-16 10:13 | W.PM.OP ---
Operative Note Operative Note PRE-OP DIAGNOSIS: Nuclear/cortical cataract, left eye Fuchs corneal endothelial dystrophy, left eye POST-OP DIAGNOSIS: same PROCEDURE: Cataract extraction using phacoemulsification with intraocular lens implant, left eye SURGEON: Koffi Charlton ANESTHESIA TYPE: Local By Surgeon and MAC Refer to Anesthesia Record PATHOLOGY: none sent COMPLICATIONS: None Patient was transported to: same day Patient's condition: stable Implants: Price [employer]on [id number] Indications: Progressive decreased vision due to cataract, left eye Procedure Description: CATARACT SURGERY OPERATIVE REPORT PREOPERATIVE DIAGNOSIS: Nuclear/cortical cataract, left eye Fuchs corneal endothelial dystrophy, left eye POSTOPERATIVE DIAGNOSIS: Same OPERATION: Cataract extraction using phacoemulsification with posterior chamber intraocular lens implant, left eye. IOL: IOL Switchboard And Control Room Operator/Model: Price Clareon [id number] IOL Power: + 28.0 diopters IOL Serial Number: [id number] Optic Diameter: 6.0mm Haptic/Overall Diameter: 13.0mm PHACO INFO: Price Tidalurion Vision System with OZil and Active Fluidics Cumulative Dispersed Energy (CDE): 9.28 seconds SURGEON: Koffi Charlton MD, DELIA ANESTHESIA: Monitored Anesthesia Care (MAC), with local sub-tenon's anesthetic infiltration COMPLICATIONS: None SPECIMENS: None INDICATIONS FOR PROCEDURE: The patient is a 75-year-old lady with history of Fuchs corneal endothelial dystrophy in both eyes who has developed significant nuclear/cortical cataract. She also has a history of short axial length with high hyperopia. She is significantly symptomatic from cataract that she desires cataract surgery and attempt to improve and maximize her vision. The option of cataract surgery was offered to the patient and she wished to proceed. See office notes for detailed information. PROCEDURE: The correct surgical eye was identified and marked as the left eye and the pupil was dilated in the preoperative area using mydriatics and cycloplegics. The dilated pupil size was 7.0 mm. The patient elected to proceed without oral sedation. The patient was brought to the operating room where cardiopulmonary monitoring was instituted and surgical time-out was performed, confirming the correct operative eye and IOL power. Topical anesthesia was administered and ophthalmic povidone-iodine 5% was instilled into the conjunctival fornices. The may-ocular area was prepped with Betadine 10% solution and draped in the usual sterile fashion for intraocular surgery, including an aperture drape. A Tegaderm transparent film dressing was cut in half and used to cover the lashes and lid margins. Care was taken to sequester the lashes and lid margins under the Tegaderm dressing. A lid speculum was placed between the lids of the operative eye and the Price LuxOR Revalia operating microscope was maneuvered into position. Magaly scissors were then used to make a conjunctival buttonhole approximately 6mm posterior to the limbus in the inferonasal quadrant. Blunt dissection was carried out to expose bare sclera, and a blunt-tipped sub-tenon?s anesthesia cannula was introduced and passed posteriorly along the globe where non-preserved plain lidocaine was injected into posterior sub-Tenon?s space. A sideport knife was used to make a paracentesis port. Intraocular phenylephrine/lidocaine was injected into the anterior chamber. The anterior chamber was then filled with viscoelastic. A keratome knife was used construct a two-plane clear corneal tunnel extending 2.0mm into clear cornea. A flap was raised on the anterior capsule and capsulorhexis forceps were used to complete a continuous curvilinear capsulorhexis of 5.0 mm. Balanced salt solution was then used to perform cortical cleaving hydrodissection and nuclear hydrodelineation until the lens could be freely rotated within the capsular bag. The lens nucleus was then disassembled and removed within the capsular bag and iris plane using phacoemulsification. Additional Viscoat was injected intermittently to protect the corneal endothelium due to the corneal endothelial dystrophy. Residual cortical material was removed using the irrigation/aspiration handpiece. The posterior capsule was carefully polished to remove as much residual lens epithelial cells as safely possible. The capsular bag was then inflated and the anterior chamber deepened with viscoelastic. The lens implant described above was inserted into the capsular bag using the Price Autonome Injector. A Kuglen hook was used to dial the IOL into position. Residual viscoelastic was then removed first from posterior to the IOL, then from the anterior chamber using the I/A handpiece. The lens implant was noted to center nicely within the capsular bag. The incisions were stromally hydrated, and the anterior chamber was reformed using BSS. Then 0.5cc of moxifloxacin 1.0mg/ml were injected into the capsular bag and anterior chamber. The incisions were checked with a Weck spear and found to be secure. Several drops of ophthalmic povidone-iodine 5% were then applied to the eye followed by two drops of combination steroid/NSAID/antibiotic solution. The drapes were removed and a clear plastic protective eye shield was placed over the eye. The patient was then returned to Same Day Surgery in stable condition. Date of Procedure: 04/16/25
--- NOTE | 2025-04-16 11:00 | W.ANESPOSTOP ---
Postoperative Evaluation Date, Time and Location Date Performed: 04/16/25 Time Performed: 10:16 Patient Location: Day Surgery Unit Vital Signs Most Recent Imported Vital Signs: Most Recent Vital Signs Temp Pulse Resp BP Pulse Ox 36.3 C L 60 16 142/76 H 100 04/16/25 10:11 04/16/25 10:11 04/16/25 10:11 04/16/25 10:11 04/16/25 10:11 Pain Score Most Recent Pain Score: Most Recent Pain Score Pain Level 0 04/16/25 10:11 Assessment Mental Status: Awake (Alert & Oriented to Patient Baseline) Airway and Respiratory Function: Patent airway with normal (patient baseline) respiratory exam Cardiovascular Function: Hemodynamically Stable Hydration Status: Adequately Hydrated Nausea & Vomiting: No Nausea or Vomiting Pain: Pt. Denies Any Pain Peripheral Nerve Block: Other (Local by Dr. Charlton)
== END 2025-04-16 10:36 | disposition home or self-care (01) ==
LOC: SUR 08:04
PROVIDERS: PCP Family Medicine; Visit Provider Ophthalmology
PROC: (CPT 66984; principal; 2025-04-16 10:30)
DX: H25.12 Age-related nuclear cataract, left eye (principal); H18.512 Endothelial corneal dystrophy, left eye; I10 Essential (primary) hypertension; K21.9 Gastro-esophageal reflux disease without esophagitis
CPT/HCPCS: 66984; 00123; V2632; J2003

== ENCOUNTER 2025-04-30 06:01 | Day surgery (SDC) | payer MEDICARE, SELFPAY ==
[2025-04-30 06:15] VITALS: BP 113/80; PULSE 74; RESP 16; TEMP 36.4; O2SAT 95
[2025-04-30] MEDS: Tropicam./Phenyleph. (1/2.5%) 5 ML BTL OD ×3 (06:42→06:56)
--- NOTE | 2025-04-30 07:06 | ANES.PREOP_ITS ---
General Info Date of Service Date Performed: 04/30/25 Height: 5 ft 3 in Weight: 86.4 kg Body Mass Index (BMI): 33.7 Surgical Procedure: Operation Date: 04/30/25 07:40 Proposed Procedure Side Surgeon p Cataract Extraction with IOL Implant Right Koffi Charlton MD Meds Allergies and Home Medications Allergies Allergy/AdvReac Type Severity Reaction Status Date / Time No Known Allergies Allergy Verified 04/30/25 06:46 Home Medication ?Medication ?Instructions ?Recorded alendronate 70 mg tablet 70 mg PO QWEEK 07/02/22 atorvastatin 20 mg tablet 20 mg PO HS 07/02/22 calcium 300 mg-D3 20 mcg-magnesium 1 tab PO DAILY 06/06 03/26 25 mg-coppr 0.5 [id number]-mekd tablet (Caltrate-D3 Plus Minerals) lisinopril 20 1 tab PO DAILY 07/02/22 mg-hydrochlorothiazide 25 mg tablet multivitamin 1 tab PO DAILY 07/02/22 lkbmvjhs-bkv- 250 mg-dha 90 1 cap PO DAILY 06/19 mg-epa 160 gp-zfwk-izwd-zeax capsule (Ocuvite Adult 50 Plus) amoxicillin 500 mg capsule 2,000 mg PO BID PRN 4 atenolol 25 mg tablet 25 mg PO DAILY 04/16/25 Current Visit Medications: Current Medications Generic Name Dose Route Start Last Admin Trade Name Freq PRN Reason Stop Dose Admin Acetaminophen 1,000 mg 04/30/25 06:00 Acetaminophen 500 Mg Tab PO 05/30/25 05:59 Q4H PRN PRN Balanced Salt Solution 500 ml 04/30/25 06:00 Balanced Salt Soln.-Plus 500 Ml Bag OP 05/30/25 05:59 DIRECTED ERNESTO Miscellaneous Medication 0 ml 04/30/25 06:00 Prednisolone 1%, Moxifloxacin 0.5%, Bromfenac 0.09% 5.6ml Btl OD 05/30/25 05:59 DIRECTED ERNESTO Miscellaneous Medication 0 ml 04/30/25 06:00 04/30/25 06:56 Tropicam./Phenyleph. 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.512 Nuclear age-related cataract, left eye Resolved H25.12 Hyperplastic colon polyp Acute ~03/08/23 K63.5 Diverticula of colon Acute K57.30 Adenomatous colon polyp Acute D12.6 Sinus node dysfunction Acute I49.5 Overactive bladder Acute N32.81 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 Glaucoma Chronic H40.9 Osteoarthritis Chronic M19.90 GERD (gastroesophageal reflux disease) Chronic K21.9 Anxiety Chronic F41.9 Hyperlipidemia Acute E78.5 Family history of colon cancer Acute Z80.0 Insomnia Acute G47.00 Thyroid nodule Acute E04.1 Cardiac pacemaker in situ Acute Z95.0 Prediabetes Acute R73.03 Hypertension Chronic I10 Screening for colon cancer Acute Z12.11 Medical History Medical History Sacral nerve stimulator present In situ for OAB Bradycardia Surgical History Surgical History (Updated 04/30/25 @ 06:35 by Mila Beavers) S/P cataract extraction and insertion of intraocular lens History of colonoscopy (~03/2023) S/P vaginal hysterectomy H/O oral surgery Status post arthroscopy of knee both knees Tobacco Smoking/Tobacco Use Status: Never Passive smoking exposure: No Alcohol Alcohol Intake: current Alcohol intake frequency: a few times a month Substance Use Substance use: Never Substance use type: does not use Vital Signs and Lab Results Vital Signs Most Recent Vital Signs in EMR: Most Recent Vital Signs Temp Pulse Resp BP Pulse Ox 36.4 C L 74 16 113/80 95 04/30/25 06:15 04/30/25 06:15 04/30/25 06:15 04/30/25 06:15 04/30/25 06:15 Imaging and Studies Imaging and Studies Study information below may be from another EMR and interpreted by another provider. Please see original notes in EMR for more complete details. EKG Summary: EKG PATIENT NAME: Sissy Bran UNIT #: [id number] ORDERING PROVIDER: Pierre Nolasco PRIMARY CARE PROVIDER: MIREYA NARAYAN MD DATE/TIME OF SERVICE: 12/23/24924 : 1950 PERFORMING LOCATION: .[facility] APPROVED REPORT Exam: Resting ECG Reason for Exam: sick sinus syndrome Patient Location: HR:73 bpm ECG Measurements Heart Rate 73 AXIS IL 162 P -60 QRSd 146 QRS 0 QT 429 T-32 QTc 473 Conclusion Sinus or ectopic atrial rhythm...P axis (-45,135) Right bundle branch block...QRSd>120, terminal axis(90,270) ------- <Electronically signed by JARROD GILLIS MD in OV> E-Sign Date: 12/24/24 E-Sign Time: 832 Echocardiogram Summary: Patient Name: Sissy Bran Unit #: [id number] Loc: Ordering Provider: Jarrod Gillis M.D. Status: REG [facility] Primary Care Provider: Mireya Narayan M.D. Date of Exam: 02/16/25 Sex: F Admission Date: 02/16/25 : 1950 Age: 74 APPROVED REPORT EXAM: Comprehensive 2D, Doppler, and color-flow Echocardiogram Patient Location: Out-Patient Fisher Line: Adeline Holman RDCS (AE) Indications: Systolic murmur, SOB Other Information Study Quality: Adequate Conclusion Normal left ventricular wall thickness and chamber size. Ejection fraction is 60%. Wall motion is normal Normal right ventricular size and function Both atria are normal in size The aortic valve is trileaflet and minimally sclerotic with trace regurgitation Estimated right ventricular systolic pressure is 30 mmHg Ascending aorta measures 4.19 cm Device lead noted in the right heart Wall motion Left Ventricle The left ventricle is normal size. The left ventricular systolic function is normal. The left ventricular ejection fraction is within the normal range. There is normal left ventricular wall thickness. There is normal LV segmental wall motion. There is no ventricular septal defect visualized. LVEF is 60%. Right Ventricle Right ventricle is grossly normal in size. Right ventricular systolic function is grossly normal. Pacemaker lead is present in the right ventricle. Atria The left atrium size is normal. The right atrium size is normal. The interatrial septum is intact with no evidence for an atrial septal defect. Aortic Valve The Aortic valve is minimally sclerotic. Aortic valve is trileaflet. No hemodynamically significant valvular aortic stenosis. Trace aortic regurgitation. Mitral Valve The mitral valve is normal in structure. No evidence of mitral valve stenosis. Trace mitral regurgitation. Tricuspid Valve The tricuspid valve is normal in structure. There is no tricuspid valve stenosis. Trace tricuspid regurgitation. The RVSP is 30.0_ mmHg. Pulmonic Valve The pulmonary valve is normal in structure. There is no pulmonic valvular stenosis. Trace pulmonic regurgitation. Great Vessels The aortic root is normal in size. The ascending aorta is moderately dilated. Aortic arch is not well visualized. IVC is normal in size and collapses >50% with inspiration. Pericardium There is no pericardial effusion. 2D Dimensions IVSD d PLAX 0.90 cm F: 0.6-1.0Ao Root d 3.01 cm F: 2.7 - 3.3 LVPW d PLAX 0.90 cm F: 0.6 - 1.0Ao Asc Diam d 4.06 cm F: 2.3 - 3.1 LVID d PLAX 4.60 cm F: 3.8 - 5.2 LVDs 3.10 cm F: 2.2 - 3.5 LV EF Teichholz 61.5 % FS32.94 % LV EDV (Teich)97.4 mL LV ESV (Teich)37.5 mL M-Mode TAPSE 3.23 cm (M/F) >1.7 Auto EF LV EDV A4C98.4 mLLV EDV A2C77.8 mLLV EDV BP88.4 mL LV ESV A4C42.2 mLLV ESV A2C32.8 mLLV ESV BP37.3 mL LVEF(%) A4C57.2 %LVEF(%) A2C57.9 %LVEF(%) BP57.7 % LV SV A4C56.2 mlLV SV A2C45.0 mlLV SV BP51.0 ml LV CO A4C3.4 L/minLV CO A2C2.7 L/minLV CO BP3.0 L/min HR A4C60.00 BPMHR A2C60.00 BPMLV EDV Index (BP) LA Volume LA Length A4C4.9 cmLA Length A2C5.3 cm LA Area A4C s 14.74 cm2LA Area A2C s 15.66 cm2 LA Vol A4C A-L37.35 mLLA Vol A2C A-L39.47 mLLA Vol Biplane A-L39.7 mL LA Vol/BSA A4C A-LLA Vol/BSA A2C A-LLA Vol/BSA BP A-L 21.3 mL/m2 LA Vol A4C MOD35.1 mLLA Vol A2C MOD37.6 mLLA Vol BP MOD37.5 mL LV Diastology MV E' medial0.086 (>0.07 m/s)MV E Vmax 0.70 (0.4-1.3 m/s) MV E/E' MED8.18 (<14)MV A Vmax 0.95 (0.4-1.3 m/s) E/A Ratio 0.7 Aortic Valve AoV Vmax2.02 m/sLVOT Vmax 1.28 m/s AoV Peak Grad16.4 mmHgLVOT Peak Grad 6.6 mmHg AoV Area (Vmax)2.06 [id number] VTI0.284 m AoV VTI0.423 mLVOT Mean Grad 3.8 mmHg AoV Mean Rober.1.28 m/sLVOT SV 92.40 mL AoV Mean Grad7.8 mmHgLVOT Diam s 2.00 cm AoV Area (VTI)2.18 cm2AV Regurg Peak Gr.16.37 mmHg Velocity Ratio 0.63 Mitral Valve MV DT 283 (160-240 msec) MV Vmax TIPS 0.89 m/s MV Mean Grad 1.2 (<2mmHg) MV VTI 0.348 m Pulmonary Valve PV Vmax 1.17 (0.5-1.5 m/s)RVOT Vmax 0.58 m/s PV Peak Grad 5.5 mmHgRVOT Peak Gr.1.4 mmHg PV Mean Vel0.74 m/sRVOT VTI0.113 m PV Mean Grad 2.7 mmHgRVOT Mean Gr.0.9 mmHg Tricuspid Valve RA Pressure 3.00 mmHgTR Vmax 2.60 m/s TV S'0.12 m/sTR Peak Grad 26.9 mmHg RVSP (TR) 30.0 mmHg Ordered By: Jarrod Gillis M.D. CC: Dictated By: Jarrod Gillis M.D. 02/16/25 1541 <Electronically signed by Jarrod Gillis M.D. in OV> 02/16/25 1549 Transcribed By: Jarrod Gillis MD 02/16/25 1541 This is privileged, confidential information intended only for the provider named. Any use or distribution by any person other than this provider is strictly prohibited. If you receive this report in error, please notify us immediately at [phone] and return the original report to us at the address above. Thank-you. Anesthesia Assessment and Plan Anesthesia History Personal History: No History of Anesthesia Complications Family History: No Family History of Anesthesia Complications Exercise Tolerance Exercise Tolerance: Metabolic Equivalents>4 Pertinent Negatives Pertinent Negatives: No Symptoms of GERD and No Major Pulmonary Symptoms or Complaints Cardiac & Pulmonary Exam Cardiac Exam: Normal S1/S2 Heart Sounds Pulmonary Exam: Clear Bilateral Breath Sounds Implantable Cardiac Device Does patient have a Pacemaker or an ICD?: Yes Device Supervisory Clerk:: Convozine dual lead Radha Reason for Placement:: n/a Date of Last Device Interrogation:: n/a Airway Exam Known Difficult Airway: No Mallampati Class: 3 Mouth Opening: Normal (> 3cm) Thyromental Distance: Greater than 3 cm Neck Range of Motion: Full ROM Neck Circumference: Normal Teeth Condition: Normal Dentition ASA Classification ASA Score: ASA 3 Emergency Case?: No NPO Status NPO Status: NPO Clears >2 hours, Solids >8 hours Anesthesia Plan Resuscitation Status: Full Code Anesthesia Technique: General Anesthesia Airway Planned: Natural Airway Monitors Used: Standard Monitors
[2025-04-30 07:09] VITALS: BMI 33.7
[2025-04-30] MEDS: Tetracaine 0.5% 4 ML BTL OD (07:34)
[2025-04-30] MEDS: Povidone-Iodine Ophth 30 ML BTL (07:34)
[2025-04-30] MEDS: Balanced Salt Soln.-PLUS 500 ML BAG OP (07:41)
[2025-04-30] MEDS: Phenylephrine/Lidocaine (15/10) MG/ML 1 ML VIAL (07:41)
[2025-04-30] MEDS: Duovisc Viscoelastic System EACH 1 EACH (07:42)
[2025-04-30] MEDS: Lidocaine 1% Pres-Free 5 ML VIAL (07:42)
[2025-04-30] MEDS: Moxifloxacin-PF 1 MG/ML VIAL (07:52)
[2025-04-30] MEDS: Prednisolone 1%, Moxifloxacin 0.5%, Bromfenac 0.09% 5.6ML BTL OD (07:59)
[2025-04-30 08:04] VITALS: BP 128/67; PULSE 64; RESP 16; TEMP 36.4; O2SAT 97
--- NOTE | 2025-04-30 08:04 | W.PM.DSUDISC ---
Date of service: 04/30/25 Discharge Plan Disposition Patient Disposition: Home Discharge Details Attending Provider: Koffi Charlton Primary Care Provider: Griffin Huffman Home Meds and New Rx's Prescriptions: No Action Ocuvite Adult 50 Plus 250 mg (90 mg-160 mg) capsule 1 cap PO DAILY alendronate 70 mg tablet 70 mg PO QWEEK atorvastatin 20 mg tablet 20 mg PO HS lisinopril-hydrochlorothiazide 20-25 mg tablet 1 tab PO DAILY multivitamin Tablet 1 tab PO DAILY Caltrate-D3 Plus Minerals 300 mg-800 unit -25 mg-0.5 mg tablet 1 tab PO DAILY amoxicillin 500 mg capsule 2,000 mg PO BID PRN Rx Instructions: take 4 tabs prior to dental work atenolol 25 mg tablet 25 mg PO DAILY Discharge Instructions Stand Alone Forms: DSU Post-Op Cataract, Jean Velasquez (DSU) Discharge Orders Discharge Orders: Discharge Order (Routine); Ordered 04/30/25 Ordered By: Koffi Charlton DS: Diagnosis Discharge Diagnosis (1) Cortical age-related cataract, right eye: Status: Resolved (2) Nuclear age-related cataract, right eye: Status: Resolved
--- NOTE | 2025-04-30 08:05 | W.PM.OP ---
Operative Note Operative Note PRE-OP DIAGNOSIS: Nuclear/cortical cataract, right eye POST-OP DIAGNOSIS: same PROCEDURE: Cataract extraction using phacoemulsification with intraocular lens implant, right eye SURGEON: Koffi Charlton ANESTHESIA TYPE: Local By Surgeon and MAC Refer to Anesthesia Record ESTIMATED BLOOD LOSS: 0 PATHOLOGY: none sent COMPLICATIONS: None Patient was transported to: same day Patient's condition: stable Implants: Price Clareon [id number] Indications: Progressive decreased vision due to cataract, right eye Procedure Description: CATARACT SURGERY OPERATIVE REPORT PREOPERATIVE DIAGNOSIS: Nuclear/cortical cataract, right eye POSTOPERATIVE DIAGNOSIS: Same OPERATION: Cataract extraction using phacoemulsification with posterior chamber intraocular lens implant, right eye. IOL: IOL News Gathering Technician/Model: Price Clareon [id number] IOL Power: + 27.0 diopters IOL Serial Number: [id number] Optic Diameter: 6.0mm Haptic/Overall Diameter: 13.0mm PHACO INFO: Price Centurion Vision System with OZil and Active Fluidics Cumulative Dispersed Energy (CDE): 10.94 seconds SURGEON: Koffi Charlton MD, DELIA ANESTHESIA: Monitored Anesthesia Care (MAC), with local sub-tenon's anesthetic infiltration COMPLICATIONS: None SPECIMENS: None INDICATIONS FOR PROCEDURE: The patient is a 75-year-old lady with history of diminished visual acuity in both eyes secondary to the development of nuclear/cortical cataract. She has a history of hyperopia with shorter axial length and Fuchs dystrophy. The option of cataract surgery was offered to the patient and she wished to proceed. She has already undergone cataract surgery in the left eye and is doing well postoperatively. She now presents for cataract surgery in the right eye. See office notes for detailed information. PROCEDURE: The correct surgical eye was identified and marked as the right eye and the pupil was dilated in the preoperative area using mydriatics and cycloplegics. The dilated pupil size was 7.0 mm. The patient elected to proceed without oral sedation. The patient was brought to the operating room where cardiopulmonary monitoring was instituted and surgical time-out was performed, confirming the correct operative eye and IOL power. Topical anesthesia was administered and ophthalmic povidone-iodine 5% was instilled into the conjunctival fornices. The may-ocular area was prepped with Betadine 10% solution and draped in the usual sterile fashion for intraocular surgery, including an aperture drape. A Tegaderm transparent film dressing was cut in half and used to cover the lashes and lid margins. Care was taken to sequester the lashes and lid margins under the Tegaderm dressing. A lid speculum was placed between the lids of the operative eye and the Price LuxOR Revalia operating microscope was maneuvered into position. Magaly scissors were then used to make a conjunctival buttonhole approximately 6mm posterior to the limbus in the inferonasal quadrant. Blunt dissection was carried out to expose bare sclera, and a blunt-tipped sub-tenon?s anesthesia cannula was introduced and passed posteriorly along the globe where non-preserved plain lidocaine was injected into posterior sub-Tenon?s space. A sideport knife was used to make a paracentesis port. Intraocular phenylephrine/lidocaine was injected into the anterior chamber. The anterior chamber was then filled with viscoelastic. A keratome knife was used to construct a two--plane clear corneal tunnel extending 2.0mm into clear cornea. A flap was raised on the anterior capsule and capsulorhexis forceps were used to complete a continuous curvilinear capsulorhexis of 5.0 mm. Balanced salt solution was then used to perform cortical cleaving hydrodissection and nuclear hydrodelineation until the lens could be freely rotated within the capsular bag. The lens nucleus was then disassembled and removed within the capsular bag and iris plane using phacoemulsification. Residual cortical material was removed using the I/A handpiece. The posterior capsule was carefully polished to remove as much residual lens epithelial cells as safely possible. The capsular bag was then inflated and the anterior chamber deepened with cohesive viscoelastic. The lens implant described above was inserted into the capsular bag using the Price Autonome Injector. A Kuglen hook was used to dial the IOL into position. Residual viscoelastic was then removed first from posterior to the IOL, then from the anterior chamber using the I/A handpiece. The lens implant was noted to center nicely within the capsular bag. The incisions were stromally hydrated, and the anterior chamber was reformed using BSS. Then 0.5cc of moxifloxacin 1.0mg/ml were injected into the capsular bag and anterior chamber. The incisions were checked with a Weck spear and found to be secure. Several drops of ophthalmic povidone-iodine 5% were then applied to the eye followed by two drops of combination steroid/NSAID/antibiotic solution. The drapes were removed and a clear plastic protective eye shield was placed over the eye. The patient was then returned to Same Day Surgery in stable condition. Date of Procedure: 04/30/25
--- NOTE | 2025-04-30 08:22 | W.ANESPOSTOP ---
Postoperative Evaluation Date, Time and Location Date Performed: 04/30/25 Time Performed: 08:04 Patient Location: Day Surgery Unit Vital Signs Most Recent Imported Vital Signs: Most Recent Vital Signs Temp Pulse Resp BP Pulse Ox 36.4 C L 64 16 128/67 97 04/30/25 08:04 04/30/25 08:04 04/30/25 08:04 04/30/25 08:04 04/30/25 08:04 Pain Score Most Recent Pain Score: Most Recent Pain Score Pain Level 0 04/30/25 08:04 Assessment Mental Status: Awake (Alert & Oriented to Patient Baseline) Airway and Respiratory Function: Patent airway with normal (patient baseline) respiratory exam Cardiovascular Function: Hemodynamically Stable Hydration Status: Adequately Hydrated Nausea & Vomiting: No Nausea or Vomiting Pain: Pt. Denies Any Pain Peripheral Nerve Block: Patient did not receive a nerve block
== END 2025-04-30 08:24 | disposition home or self-care (01) ==
LOC: SUR 06:02
PROVIDERS: PCP Family Medicine; Visit Provider Ophthalmology
PROC: (CPT 66984; principal; 2025-04-30 07:30)
DX: H25.011 Cortical age-related cataract, right eye (principal); H25.11 Age-related nuclear cataract, right eye; Z98.42 Cataract extraction status, left eye
CPT/HCPCS: 66984; 00123; V2632; J2003

== ENCOUNTER 2025-06-03 03:34 | Outpatient (CLI) | payer SELFPAY ==
[2025-06-04 09:09] LABS: HBs Antibody, Quant 521.5 mIU/mL (See Note); Hepatitis B Surface Ab Positive (See Note)
[2025-06-04 10:09] LABS: Rubella IgG Ab (UVM) Positive (See Note)
[2025-06-06 11:57] LABS: TB Interpretation Negative (Negative); TB1 Ag minus Nil 0.00 IU/mL; TB2 Ag minus Nil 0.00 IU/mL
== END 2025-06-03 03:35 | disposition home or self-care (01) ==
LOC: LBO 03:34
PROVIDERS: PCP Family Medicine; Visit Provider Student in an Organized Health Care Education/Training Program
DX: Z02.1 Encounter for pre-employment examination (principal)
CPT/HCPCS: 36415; 86706; 86787; 87340; 86480; 86735; 86762; 86765

== ENCOUNTER → 2025-07-12 00:37 | Outpatient (CLI) | payer MEDICARE, SELFPAY ==
--- NOTE | 2025-07-12 | DI.MAMMO_ITS ---
Exam(s) MAMMO SCREENING EXAM: MAMMO SCREENING CLINICAL HISTORY: SCREENING,Z12.31 TECHNIQUE: Mammograms were interpreted according to the usual protocol including computer analysis with CAD system, tomosynthesis and C-view imaging. COMPARISON: 2020 and 2021 FINDINGS: The breasts are composed of heterogeneously dense fibroglandular densities, Breast Density category C. No suspicious masses or suspicious microcalcifications are seen. No skin thickening or abnormal axillary lymph nodes are seen. There has been no significant change from prior exams. A pacemaker is again noted over the left pectoral muscle. IMPRESSION: BI-RADS Category 1, Negative mammogram. Yearly screening mammography is recommended. Breast Density: Category C - The breasts are heterogeneously dense, which may obscure small masses. Breast density Category C or D implies that the patient has dense breast tissue. Dense breast tissue can make it harder to find cancer on a mammogram. Dense breast tissue is also associated with an increased risk of breast cancer. This information about the result of the mammogram report was provided to the patient to raise their awareness. Use this report when you speak with the patient about their risks for breast cancer, which includes their family history. At that time, you may recommend additional screening tests (Ultrasound or MRI) as these tests may add significant information. A negative radiographic report should not delay biopsy if a dominant or clinically suspicious mass is present. Up to ten percent of cancers are not identified on mammography. A negative report may reinforce clinical impression. Adenosis and dense breasts may obscure an underlying neoplasm. False positive reports average 6 to 10%.
== END ==
LOC: DI 00:37
PROVIDERS: PCP Family Medicine; Visit Provider Family Medicine
DX: Z12.31 Encounter for screening mammogram for malignant neoplasm of breast (principal)
CPT/HCPCS: 77063; 77067